=== PATIENT | male | born 1975 | race African-American/Black ===

== ENCOUNTER 2021-10-08 06:22 | Observation (INO) | payer BC ==
[2021-10-06 14:42] LABS: BASOPHILS # (AUTO) 0.1 (0.0-0.1); BASOPHILS % 0.7 % (0.0-1.0); EOSINOPHILS # (AUTO) 0.1 (0.0-0.4); EOSINOPHILS % 1.1 % (0.0-6.0); HEMATOCRIT 42.4 % (38.2-49.6); HEMOGLOBIN 14.2 g/dL (14.0-18.0); LYMPHOCYTES # (AUTO) 1.5 (1.0-3.2); LYMPHOCYTES % 19.8 % (18.0-39.1); MEAN CORPUSCULAR HEMOGLOBIN 31.9 pg (28-32); MEAN CORPUSCULAR HGB CONC 33.5 g/dL (31-35); MEAN CORPUSCULAR VOLUME 95.3 fL (81-99); MONOCYTES # (AUTO) 0.7 (0.2-0.8); MONOCYTES % 9.3 % (4.4-11.3); NEUTROPHILS # (AUTO) 5.1 (2.1-6.9); PLATELET COUNT 249 x10e3/uL (140-360); RED BLOOD COUNT 4.45 x10e6/uL (4.3-5.7); RED CELL DISTRIBUTION WIDTH 12.8 % (11.7-14.4)
[2021-10-06 14:59] LABS: INR 0.93; PARTIAL THROMBOPLASTIN TIME 27.2 seconds (23.8-35.5); PROTHROMBIN TIME 13.3 seconds (11.9-14.5)
[2021-10-06 15:06] LABS: CREATININE, SERUM 1.25 mg/dL (0.72-1.25)
[~2021-10-08] VITALS: Ht 182.9 cm; Wt 85.3 kg
[2021-10-08] MEDS ORDERED: Vancomycin IV 1 GM VIAL ONE (06:50)
[2021-10-08] MEDS ORDERED: THROMBIN FOR SOLN 5,000 UNIT VIAL ONE (06:50)
[2021-10-08] MEDS ORDERED: ACETAMINOPHEN 1000 MG/100 ML 100 ML IV ONE (10:07)
[2021-10-08] MEDS ORDERED: HYDROCODON-ACE1 EA12 PO (10:29)
[2021-10-08] MEDS ORDERED: ONDANSETRON HCL INJ 2MG/ML 2ML 2 MG/ML VIAL IV PRN (10:30)
[2021-10-08] MEDS ORDERED: PROMETHAZINE HCL (IM) 25 MG/ML VIAL IM PRN (10:30)
[2021-10-08] MEDS ORDERED: ACETAMINOPHEN 325 MG TAB PO PRN (10:30)
[2021-10-08] MEDS ORDERED: ZOLPIDEM TARTRATE 5 MG TAB PO PRN (10:30)
[2021-10-08] MEDS ORDERED: MORPHINE SULFATE 5 MG/ML VIAL IM PRN (10:30)
[2021-10-08] MEDS ORDERED: CARISOPRODOL 350 MG TAB PO PRN (10:30)
[2021-10-08] MEDS ORDERED: OXYCODONE/ACETAMINOPHEN 5-325 1 EACH TABLET PO PRN (10:30)
[2021-10-08] MEDS ORDERED: HYDROMORPHONE 2MG/ML 2 MG/ML ML IV PRN (10:30)
[2021-10-08] MEDS ORDERED: MAGNESIUM/ALUMINUM/SIMETHICONE 30 ML UDC PO PRN (10:30)
[2021-10-08 11:30] VITALS: BP 133/96
[2021-10-08] MEDS: LACTATED RINGER'S 1,000 ML IV SCH ×2 (11:39→21:27)
[2021-10-08 11:45] VITALS: BP 133/96
[2021-10-08 11:59] VITALS: BP 122/85
[2021-10-08] MEDS ORDERED: ONDANSETRON HCL INJ 2MG/ML 2ML 2 MG/ML VIAL ONE (12:22)
[2021-10-08] MEDS ORDERED: DEXAMETHASONE SOD PHOS INJ 4 MG/ML SDV ONE (12:22)
[2021-10-08] MEDS ORDERED: KETOROLAC TROMETHAMINE 30 MG/ML VIAL ONE (12:22)
[2021-10-08] MEDS ORDERED: POVIDONE IODINE 0.05% 0.05 % ML PO ONE (12:22)
[2021-10-08] MEDS ORDERED: PROPOFOL IV EMULSION 10 MG/ML 20 ML VIAL ONE (12:22)
[2021-10-08] MEDS ORDERED: SEVOFLURANE INHAL SOLN 250 ML PEN BTL ONE (12:22)
[2021-10-08] MEDS ORDERED: NEOSTIGMINE 1 MG/ML 10ML VIAL ONE (12:22)
[2021-10-08] MEDS ORDERED: LIDOCAINE HCL 2% LOCAL INJ 5 ML SDV VIAL INJ ONE (12:22)
[2021-10-08] MEDS ORDERED: ATROPINE SULFATE 1 MG/ML VIAL ONE (12:22)
[2021-10-08] MEDS ORDERED: ROCURONIUM BROMIDE 10 MG/ML 5ML VIAL IV ONE (12:22)
[2021-10-08] MEDS: DEXAMETHASONE SOD PHOS INJ 4 MG/ML SDV IV SCH ×2 (12:24→16:50)
[2021-10-08 13:36] VITALS: BP 122/85
[2021-10-08 17:34] VITALS: BP 142/95
[2021-10-08 20:00] VITALS: BP 124/82
[2021-10-09] VITALS: BP 129/60
[2021-10-09] MEDS: LACTATED RINGER'S 1,000 ML IV SCH (03:10)
[2021-10-09 04:00] VITALS: BP 123/82
[2021-10-09] MEDS: DEXAMETHASONE SOD PHOS INJ 4 MG/ML SDV IV SCH ×2 (05:44)
[2021-10-09 07:45] VITALS: BP 136/88
== END 2021-10-09 07:53 | disposition home or self-care (01) ==
LOC: OR 06:22 → PACU V 10:37 → MED/SURG 11:29
PROVIDERS: ADMIT Neurological Surgery; ATTEND Neurological Surgery
DX: M50.021 Cervical disc disorder at C4-C5 level with myelopathy (principal); Z20.822 Contact with and (suspected) exposure to COVID-19; Z01.818 Encounter for other preprocedural examination
CPT/HCPCS: 0223U; 20931; 22551; 22845; 36415; 71046; 72040; 76000; 80048; 85025; 85610; 85730; 86850; 86900; 88304; 93005; C1713 ×3; G0378 ×2; J0131; J0690; J1100 ×2; J3370; J7121; J0461; J1885; J2001; J2405; J2710

== ENCOUNTER → 2021-11-05 | Outpatient (CLI) | payer BC ==
[~2021-11-05] MED LIST: HYDROCODON-ACE1 EA12 PO
== END ==
LOC: RAD 09:17
PROVIDERS: ATTEND Neurological Surgery
DX: M50.20 Other cervical disc displacement, unspecified cervical region (principal); M43.22 Fusion of spine, cervical region
CPT/HCPCS: 72050